=== PATIENT | male | born 1955 | race Caucasian/White ===

== ENCOUNTER 2020-10-20 14:45 | Inpatient (IN) | payer MEDICARE ==
[~2020-10-20] VITALS: Ht 175.3 cm; Wt 81.6 kg
[2020-10-20] MEDS ORDERED: CEFTRIAXONE 1 GM VIAL IM ONE (15:15)
[2020-10-20 15:18] LABS: BASOPHILS % 0.2 % (0.0-1.0); EOSINOPHILS % 0.1 % (0.0-6.0); HEMATOCRIT 38.6 % (38.2-49.6); HEMOGLOBIN 13.1 g/dL (14.0-18.0); LYMPHOCYTES # (AUTO) 0.8 (1.0-3.2); LYMPHOCYTES % 6.4 % (18.0-39.1); MEAN CORPUSCULAR HGB CONC 33.9 g/dL (31-35); MEAN CORPUSCULAR VOLUME 91.5 fL (81-99); MONOCYTES # (AUTO) 1.6 (0.2-0.8); MONOCYTES % 12.6 % (4.4-11.3); NEUTROPHILS % 80.4 % (38.7-80.0); PLATELET COUNT 210 x10e3/uL (140-360); RED BLOOD COUNT 4.22 x10e6/uL (4.3-5.7); RED CELL DISTRIBUTION WIDTH 12.1 % (11.7-14.4)
[2020-10-20 15:32] LABS: ALBUMIN 3.6 g/dL (3.5-5.0); ALBUMIN/GLOBULIN RATIO 0.7 (0.8-2.0); ANION GAP 17.2 mmol/L (8-16); CALCIUM 9.6 mg/dL (8.4-10.2); CREATININE, SERUM 1.02 mg/dL (0.72-1.25); POTASSIUM 4.2 mmol/L (3.5-5.1)
[2020-10-20 15:39] LABS: CREATINE KINASE MB 1.6 ng/mL (0-5.0)
[2020-10-20] MEDS ORDERED: ASPIRIN 81 MG CHEW TAB PO ONE (17:00)
[2020-10-20] MEDS ORDERED: SODIUM CHLORIDE 0.9% 1000ML 1,000 ML IV ONE (17:15)
[2020-10-20] MEDS: ALBUTEROL SULF 0.083% NEB SOLN 3 ML NEB NEB SCH ×3 (17:17→20:05)
[2020-10-20 20:00] VITALS: BP 97/57
[2020-10-20 20:30] VITALS: BP 97/57
[2020-10-20] MEDS ORDERED: ACETAMINOPHEN 325 MG TAB PO PRN (20:30)
[2020-10-20 20:50] LABS: CREATINE KINASE MB 1.2 ng/mL (0-5.0)
[2020-10-20] MEDS ORDERED: IOPAMIDOL 370 MG/ML 200 ML INFUS..BTL INJ ONE (21:00)
[2020-10-20] MEDS ORDERED: SODIUM CHLORIDE 0.9% 50ML 50 ML ONE (21:00)
[2020-10-20 21:30] VITALS: BP 97/57
[2020-10-20] MEDS: SODIUM CHLORIDE 0.9% 1000ML 1,000 ML IV SCH (22:14)
[2020-10-21] VITALS (8 sets, daily range): BP systolic 90–120; BP diastolic 57–64
[2020-10-21] MEDS: SODIUM CHLORIDE 0.9% 1000ML 1,000 ML IV SCH ×3 (01:00→16:44)
[2020-10-21] MEDS: ALBUTEROL SULF 0.083% NEB SOLN 3 ML NEB NEB SCH ×6 (03:30→23:45)
[2020-10-21] MEDS ORDERED: GUAIFENESIN/CODEINE 10 ML CUP PO PRN (06:45)
[2020-10-21] MEDS: CEFTRIAXONE 1 GM in SODIUM CHLORIDE 0.9% 50ML 50 ML IV SCH (09:31)
[2020-10-21] MEDS: ENOXAPARIN SOD INJ 40 MG/0.4 ML SYR SC SCH (09:31)
[2020-10-21 09:44] LABS: CREATINE KINASE MB 1.6 ng/mL (0-5.0)
[2020-10-21] MEDS: LOSARTAN POTASSIUM 25 MG TAB PO SCH (13:00)
[2020-10-22] VITALS (8 sets, daily range): BP systolic 108–172; BP diastolic 64–94
[2020-10-22] MEDS: SODIUM CHLORIDE 0.9% 1000ML 1,000 ML IV SCH ×2 (00:02→09:10)
[2020-10-22] MEDS: ALBUTEROL SULF 0.083% NEB SOLN 3 ML NEB NEB SCH ×5 (03:40→19:33)
[2020-10-22] MEDS: ENOXAPARIN SOD INJ 40 MG/0.4 ML SYR SC SCH (09:10)
[2020-10-22] MEDS: CEFTRIAXONE 1 GM in SODIUM CHLORIDE 0.9% 50ML 50 ML IV SCH (09:10)
[2020-10-22] MEDS: LOSARTAN POTASSIUM 25 MG TAB PO SCH (09:12)
[2020-10-22] MEDS ORDERED: GUAIFENESIN/CODEINE 10 ML CUP PO SCH (16:00)
[2020-10-22] MEDS: GUAIFENESIN/CODEINE 10 ML CUP PO PRN (20:37)
[2020-10-22] MEDS: ALBUTEROL/IPRATROPIUM 3 ML NEB NEB SCH (23:15)
[2020-10-23] VITALS (8 sets, daily range): BP systolic 112–150; BP diastolic 66–81
[2020-10-23] MEDS: SODIUM CHLORIDE 0.9% 1000ML 1,000 ML IV SCH ×3 (00:54→21:02)
[2020-10-23] MEDS: GUAIFENESIN/CODEINE 10 ML CUP PO PRN ×4 (01:02→21:02)
[2020-10-23] MEDS: ALBUTEROL/IPRATROPIUM 3 ML NEB NEB SCH ×6 (03:10→23:05)
[2020-10-23 05:10] LABS: BASOPHILS % 0.4 % (0.0-1.0); EOSINOPHILS # (AUTO) 0.4 (0.0-0.4); EOSINOPHILS % 4.5 % (0.0-6.0); HEMOGLOBIN 11.3 g/dL (14.0-18.0); LYMPHOCYTES # (AUTO) 1.2 (1.0-3.2); MEAN CORPUSCULAR HEMOGLOBIN 31.3 pg (28-32); MEAN CORPUSCULAR HGB CONC 33.2 g/dL (31-35); MEAN CORPUSCULAR VOLUME 94.2 fL (81-99); MONOCYTES # (AUTO) 1.2 (0.2-0.8); MONOCYTES % 12.5 % (4.4-11.3); NEUTROPHILS # (AUTO) 6.8 (2.1-6.9); NEUTROPHILS % 69.7 % (38.7-80.0); PLATELET COUNT 256 x10e3/uL (140-360); RED BLOOD COUNT 3.61 x10e6/uL (4.3-5.7); RED CELL DISTRIBUTION WIDTH 12.6 % (11.7-14.4)
[2020-10-23 05:30] LABS: ALBUMIN 2.8 g/dL (3.5-5.0); ALBUMIN/GLOBULIN RATIO 0.7 (0.8-2.0); ANION GAP 15.4 mmol/L (8-16); CALCIUM 9.2 mg/dL (8.4-10.2); CREATININE, SERUM 0.76 mg/dL (0.72-1.25); POTASSIUM 4.4 mmol/L (3.5-5.1)
[2020-10-23] MEDS: LOSARTAN POTASSIUM 25 MG TAB PO SCH (09:11)
[2020-10-23] MEDS: CEFTRIAXONE 1 GM in SODIUM CHLORIDE 0.9% 50ML 50 ML IV SCH (09:11)
[2020-10-23] MEDS: ENOXAPARIN SOD INJ 40 MG/0.4 ML SYR SC SCH (09:11)
[2020-10-24] VITALS: BP 155/73
[2020-10-24] MEDS: GUAIFENESIN/CODEINE 10 ML CUP PO PRN (01:38)
[2020-10-24] MEDS: ALBUTEROL/IPRATROPIUM 3 ML NEB NEB SCH ×3 (03:10→11:00)
[2020-10-24 04:00] VITALS: BP 155/84
[2020-10-24 08:09] VITALS: BP 150/75
[2020-10-24 08:58] VITALS: BP 150/103
[2020-10-24] MEDS: ENOXAPARIN SOD INJ 40 MG/0.4 ML SYR SC SCH (09:00)
[2020-10-24] MEDS: LOSARTAN POTASSIUM 25 MG TAB PO SCH (09:12)
[2020-10-24] MEDS: CEFTRIAXONE 1 GM in SODIUM CHLORIDE 0.9% 50ML 50 ML IV SCH (09:12)
[2020-10-24 12:43] VITALS: BP 170/68
[2020-10-24] MEDS ORDERED: COZAAR25 MG PO (12:55)
[2020-10-24] MEDS ORDERED: LEVOFLOXACIN250 MG PO (13:30)
[2020-10-24] MEDS ORDERED: ALBUTEROL0.63 MG/3 NEB (13:31)
[2020-10-24] MEDS ORDERED: PROMETHAZI6.25 MG/5 PO (13:32)
== END 2020-10-24 14:00 | disposition home or self-care (01) | DRG 194 ==
LOC: ER 15:08 → ERHOLD 17:07 → MED/SURG2 19:53
PROVIDERS: ADMIT Family Medicine; ATTEND Family Medicine
DX: J18.9 Pneumonia, unspecified organism (principal); E87.1 Hypo-osmolality and hyponatremia; J43.9 Emphysema, unspecified; R91.1 Solitary pulmonary nodule; I10 Essential (primary) hypertension; Z20.822 Contact with and (suspected) exposure to COVID-19; Z99.81 Dependence on supplemental oxygen; E86.0 Dehydration
CPT/HCPCS: 36415; 71045; 71260; 80053; 82550; 82553; 83605; 83880; 84484; 85025; 87040; 93005; 94640; 99284; J0456; J0696; J1650; J7030; J7050; Q9967; U0002